=== PATIENT | male | born 1990 | race Caucasian/White ===

== ENCOUNTER 2017-03-02 12:27 | Emergency (ER) | payer OTHER ==
[~2017-03-02] VITALS: Ht 170.2 cm; Wt 70.5 kg
[2017-03-02 12:33] VITALS: BP 124/79
== END 2017-03-02 15:07 | disposition home or self-care (01) ==
LOC: ED 13:16
DX: S82.844A Nondisplaced bimalleolar fracture of right lower leg, initial encounter for closed fracture (principal); X58.XXXA Exposure to other specified factors, initial encounter; Y93.44 Activity, trampolining; Y92.89 Other specified places as the place of occurrence of the external cause; Y99.8 Other external cause status
CPT/HCPCS: 29515

== ENCOUNTER → 2017-03-05 | Outpatient (CLI) | payer OTHER | END | disposition home or self-care (01) | LOC: CFH 14:08 | PROVIDERS: ATTEND Physician Assistant | DX: S82.851A Displaced trimalleolar fracture of right lower leg, initial encounter for closed fracture (principal); X58.XXXA Exposure to other specified factors, initial encounter; Y93.89 Activity, other specified; Y92.89 Other specified places as the place of occurrence of the external cause; Y99.8 Other external cause status ==

== ENCOUNTER 2017-03-15 14:52 | Day surgery (SDC) | payer OTHER ==
[~2017-03-15] VITALS: Ht 170.2 cm; Wt 70.0 kg
[2017-03-15 15:07] VITALS: BP 135/86
[2017-03-15] MEDS ORDERED: LACTATED RINGERS 1,000 ML IV SCH (15:21)
[2017-03-15] MEDS ORDERED: OXYC-302 PO (15:23)
[2017-03-15] MEDS ORDERED: DEXAMETHASONE 4 MG/ML, 1ML ONE (16:35)
[2017-03-15] MEDS ORDERED: ROCURONIUM 10 MG/ML ONE (16:35)
[2017-03-15] MEDS ORDERED: PROPOFOL 10 MG/ML, 20ML ONE (16:35)
[2017-03-15] MEDS ORDERED: ONDANSETRON 2MG/ML, 2ML ONE (16:35)
[2017-03-15] MEDS ORDERED: SUCCINYLCHOLINE 20 MG/ML, 10ML ONE (16:35)
[2017-03-15] MEDS ORDERED: CEFAZOLIN 1,000 MG ONE (16:35)
[2017-03-15] MEDS ORDERED: OXYC1TAB9 PO (19:44)
[2017-03-15] MEDS ORDERED: DOCU-30 PO (19:45)
== END 2017-03-15 21:10 | disposition home or self-care (01) ==
LOC: OR 14:52 → 4NOR 19:39 → OR 21:10
PROVIDERS: ATTEND Orthopaedic Surgery
DX: S82.851A Displaced trimalleolar fracture of right lower leg, initial encounter for closed fracture (principal); X58.XXXA Exposure to other specified factors, initial encounter; Y93.44 Activity, trampolining; Y92.830 Public park as the place of occurrence of the external cause; Y99.9 Unspecified external cause status
CPT/HCPCS: 27823; 73610; 76000; C1713; J0330; J0690; J1100; J2250; J2405; J2704; J3010; J7120; 76001

== ENCOUNTER → 2020-10-26 | Outpatient (CLI) | payer OTHER ==
[~2020-10-26] MED LIST: DOCU-131 PO; OXYC-302 PO; OXYC1TAB18 PO
== END | disposition home or self-care (01) ==
LOC: CFH 15:09
PROVIDERS: ATTEND Physician Assistant Surgical
DX: M71.21 Synovial cyst of popliteal space [Baker], right knee (principal); M67.461 Ganglion, right knee